=== PATIENT | female | born 1960 | race Caucasian/White ===

== ENCOUNTER 2023-12-29 15:14 | Emergency (ER) | payer OTHER ==
[~2023-12-29] VITALS: Ht 152.4 cm; Wt 71.7 kg
[2023-12-29 15:26] VITALS: O2SAT 97
[2023-12-29] MEDS ORDERED: [UNRECOGNIZED DRUG - OTHER] PO (15:38)
[2023-12-29] MEDS ORDERED: HYDR20TA23 PO (15:38)
[2023-12-29] MEDS ORDERED: IBUP-1955 PO (16:00)
== END 2023-12-29 16:08 | disposition home or self-care (01) ==
LOC: ER 15:34
DX: M19.072 Primary osteoarthritis, left ankle and foot (principal); Z79.1 Long term (current) use of non-steroidal anti-inflammatories (NSAID); Z79.899 Other long term (current) drug therapy; Z60.2 Problems related to living alone
CPT/HCPCS: 73620; A4606; A4663